=== PATIENT | male | born 1980 | race Two or more races ===

== ENCOUNTER 2024-12-29 08:35 | Day surgery (SDC) | payer OTHER ==
[2024-12-29] MEDS ORDERED: MIDAZOLAM HCL 2 MG/2 ML VIAL IV ONE (11:00)
[2024-12-29] MEDS ORDERED: fentaNYL CITRATE 50 MCG/ML AMPUL IV PUSH ONE (11:00)
[2024-12-29] MEDS ORDERED: DIPHENHYDRAMINE HCL 50 MG/ML VIAL 1ML IV ONE (11:00)
== END 2024-12-29 12:05 | disposition home or self-care (01) ==
LOC: AMB-ENDOS 08:35
PROVIDERS: ATTEND Colon & Rectal Surgery
DX: K63.89 Other specified diseases of intestine (principal); Z12.11 Encounter for screening for malignant neoplasm of colon; K64.8 Other hemorrhoids